=== PATIENT | female | born 1940 | race Caucasian/White ===

== ENCOUNTER → 2017-07-29 | Outpatient (CLI) | payer MEDICARE, OTHER | END | disposition home or self-care (01) | LOC: CFH 13:43 | PROVIDERS: ATTEND Internal Medicine | DX: Z12.31 Encounter for screening mammogram for malignant neoplasm of breast (principal); Z13.820 Encounter for screening for osteoporosis; M85.88 Other specified disorders of bone density and structure, other site; N95.9 Unspecified menopausal and perimenopausal disorder | CPT/HCPCS: 77080; 77067 ==

== ENCOUNTER 2018-05-04 09:10 | Day surgery (SDC) | payer MEDICARE, OTHER ==
[~2018-05-04] VITALS: Ht 160 cm; Wt 75.0 kg
[2018-05-04] MEDS ORDERED: SODIUM CHLORIDE 0.9% 1,000 ML IV ONE (10:34)
[2018-05-04 10:36] VITALS: BP 184/89
[2018-05-04 11:27] LABS: BASOPHILS # (AUTO) 0.07 x10^3/uL (0-0.1); BASOPHILS % (AUTO) 1 % (0-1); EOSINOPHILS # (AUTO) 0.29 x10^3/uL (0-0.4); EOSINOPHILS % (AUTO) 5 % (1-7); LYMPHOCYTES # (AUTO) 0.98 x10^3/uL (1-3.4); LYMPHOCYTES % (AUTO) 16 % (22-44); MD NO; MEAN CORPUSCULAR HEMOGLOBIN 24.7 pg (27.0-34.8); MEAN CORPUSCULAR VOLUME 77.1 fL (80-100); MEAN PLATELET VOLUME 8.1 fL (7.4-10.4); MONOCYTES # (AUTO) 0.41 x10^3/uL (0.2-0.8); MONOCYTES % (AUTO) 7 % (2-9); NEUTROPHILS # (AUTO) 4.31 x10^3/uL (1.8-6.8); NEUTROPHILS % (AUTO) 71 % (42-75); PLATELET COUNT 251 x10^3/uL (130-400); RED BLOOD COUNT 4.29 x10^6/uL (3.82-5.3); RED CELL DISTRIBUTION WIDTH 18.6 % (9.6-15.2)
[2018-05-04] MEDS ORDERED: MIDAZOLAM 1 MG/ML, 2ML ONE (11:30)
[2018-05-04] MEDS ORDERED: FENTANYL PF 100 MCG/2ML ONE (11:30)
[2018-05-04] MEDS ORDERED: VERAPAMIL 2.5 MG/ML, 2ML ONE (11:30)
[2018-05-04] MEDS ORDERED: LIDOCAINE-MPF 1%, 5ML ONE (11:31)
[2018-05-04] MEDS ORDERED: HEPARIN 1,000 UNITS/ML, 10ML ONE (11:31)
[2018-05-04] MEDS ORDERED: DIPHENHYDRAMINE 50 MG/ML, 1ML ONE (11:40)
[2018-05-04] MEDS ORDERED: LABETALOL 20 MG/4 ML ONE (11:47)
[2018-05-04] MEDS ORDERED: BIVALIRUDIN 250 MG ONE (11:47)
[2018-05-04] MEDS ORDERED: SODIUM CHLORIDE 0.9% 1,000 ML IV SCH (12:01)
[2018-05-04 12:21] LABS: CHLORIDE 111 mmol/L (98-107)
[2018-05-04 12:35] LABS: ALANINE AMINOTRANSFERASE 18 U/L (12-78); ALBUMIN 3.5 g/dL (3.4-5.0); ALKALINE PHOSPHATASE 63 U/L (45-117); ANION GAP 7 mmol/L (5-15); BILIRUBIN,TOTAL 0.4 mg/dL (0.2-1.0); CREATININE 1.26 mg/dL (0.55-1.02); TOTAL PROTEIN 7.6 g/dL (6.4-8.2)
[2018-05-04] MEDS ORDERED: ASPI-515 PO (13:57)
[2018-05-04] MEDS ORDERED: SITA100T PO (13:58)
[2018-05-04] MEDS ORDERED: SIMV20TA3 PO (13:58)
[2018-05-04] MEDS ORDERED: LISI1TAB5 PO (13:59)
[2018-05-04] MEDS ORDERED: METF500T17 PO (13:59)
[2018-05-04] MEDS ORDERED: FERR140T3 PO (14:00)
[2018-05-04] MEDS ORDERED: INSU100I13 SC (14:00)
== END 2018-05-04 15:20 | disposition home or self-care (01) ==
LOC: CACL 09:10
PROVIDERS: ATTEND Internal Medicine Cardiovascular Disease
DX: I25.118 Atherosclerotic heart disease of native coronary artery with other forms of angina pectoris (principal); I10 Essential (primary) hypertension; E78.2 Mixed hyperlipidemia; E11.40 Type 2 diabetes mellitus with diabetic neuropathy, unspecified; Z79.82 Long term (current) use of aspirin; Z79.899 Other long term (current) drug therapy; Z86.73 Personal history of transient ischemic attack (TIA), and cerebral infarction without residual deficits; Z79.4 Long term (current) use of insulin
CPT/HCPCS: 36415; 80053; 85025; 93458; 99156; C1769; C1894; J1200; J1644; J2250; J3010; J3490; Q9967; J0583

== ENCOUNTER → 2018-06-30 | Outpatient (CLI) | payer MEDICARE, OTHER ==
[~2018-06-30] MED LIST: ASPI-515 PO; FERR140T3 PO; INSU100I13 SC; LISI1TAB5 PO; METF500T17 PO; SIMV20TA3 PO; SITA100T PO
== END | disposition home or self-care (01) ==
LOC: CFH 12:50
PROVIDERS: ATTEND Nurse Practitioner Family
DX: I08.3 Combined rheumatic disorders of mitral, aortic and tricuspid valves (principal); I10 Essential (primary) hypertension; E78.5 Hyperlipidemia, unspecified; E11.9 Type 2 diabetes mellitus without complications; I25.10 Atherosclerotic heart disease of native coronary artery without angina pectoris
CPT/HCPCS: 0399T; 93306

== ENCOUNTER → 2018-07-01 | Outpatient (CLI) | payer MEDICARE, OTHER ==
[~2018-07-01] MED LIST changes: +OMNIPAQUE 350 MG/ML, 100ML BOTTLE ONE
[2018-07-01 14:09] LABS: ANION GAP 7 mmol/L (5-15); CALCIUM 8.9 mg/dL (8.5-10.1); CHLORIDE 113 mmol/L (98-107); CREATININE 1.41 mg/dL (0.55-1.02)
== END | disposition home or self-care (01) ==
LOC: RAD 12:55
PROVIDERS: ATTEND Nurse Practitioner Family
DX: I51.7 Cardiomegaly (principal); J98.11 Atelectasis; M47.812 Spondylosis without myelopathy or radiculopathy, cervical region; I26.99 Other pulmonary embolism without acute cor pulmonale; E78.2 Mixed hyperlipidemia; I36.1 Nonrheumatic tricuspid (valve) insufficiency; I65.23 Occlusion and stenosis of bilateral carotid arteries; I63.9 Cerebral infarction, unspecified
CPT/HCPCS: 71275; 80048; Q9967

== ENCOUNTER → 2018-10-09 | Outpatient (CLI) | payer MEDICARE, OTHER ==
[~2018-10-09] MED LIST changes: -OMNIPAQUE 350 MG/ML, 100ML BOTTLE ONE
== END | disposition home or self-care (01) ==
LOC: CFH 12:35
PROVIDERS: ATTEND Internal Medicine
DX: Z12.31 Encounter for screening mammogram for malignant neoplasm of breast (principal)
CPT/HCPCS: 77067

== ENCOUNTER → 2020-05-05 | Outpatient (CLI) | payer MEDICARE, OTHER ==
[~2020-05-05] MED LIST changes: +LISI1TAB39 PO; -LISI1TAB5 PO; +SIMV20TA19 PO; -SIMV20TA3 PO
== END | disposition home or self-care (01) ==
LOC: CFH 10:33
PROVIDERS: ATTEND Internal Medicine
DX: M85.88 Other specified disorders of bone density and structure, other site (principal); N64.4 Mastodynia; M85.9 Disorder of bone density and structure, unspecified; N95.9 Unspecified menopausal and perimenopausal disorder
CPT/HCPCS: 76642; 77062; 77080; 77066; G0279